=== PATIENT | female | born 2005 | race Two or more races ===

== ENCOUNTER 2024-12-21 11:55 | Emergency (ER) | payer SELFPAY | END 2024-12-21 12:02 | disposition admitted as inpatient to this hospital (09) | LOC: M ED 11:55 | DX: Z53.21 Procedure and treatment not carried out due to patient leaving prior to being seen by health care provider (principal) ==

== ENCOUNTER 2024-12-21 12:07 | Outpatient (CLI) | payer SELFPAY ==
[~2024-12-21] VITALS: Ht 172.7 cm; Wt 99.1 kg
[2024-12-21 12:20] VITALS: BP 129/75; O2SAT 99
[2024-12-21] MEDS ORDERED: HOME MED LIST COMPLETE! XX SCH (12:45)
== END 2024-12-21 13:28 | disposition home or self-care (01) ==
LOC: M LDO 12:07
PROVIDERS: ATTEND Specialist
DX: O36.8130 Decreased fetal movements, third trimester, not applicable or unspecified (principal); Z3A.35 35 weeks gestation of pregnancy
CPT/HCPCS: 59025; G0463